=== PATIENT | female | born 1980 | race African-American/Black ===

== ENCOUNTER 2016-05-17 18:23 | Emergency (ER) | payer OTHER ==
--- NOTE | 2016-05-17 18:47 | ED ---
Extremity Problem HPI - General Chief complaint: Extremity Problem,Nontraumatic Stated complaint: Knee pain Time Seen by Provider: 05/17/16 18:35 Source: patient, RN notes reviewed Mode of arrival: wheelchair Limitations: physical limitation - History of Present Illness Initial comments: 35-year-old female presented to the ER complaining of severe right knee pain. 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 She states that 2 weeks ago on a Wednesday after work she was cleaning her fourth and noticed that it didn't feel like her knee popped back in. She states that she has just been working for the discomfort however today it has become unbearable. She states that she cannot sleep. She also states that it is difficult to there weight on the right leg. She states the only time that it is comfortable as while standing with all of her weight on her left leg. She says she does have radiation of pain up her thigh as well. And that the main area of pain is on the medial aspect of her knee. Eyes any prior trauma or injury. She also denies any surgical intervention to this knee in the past. She took 2 200 mg ibuprofen which has given her little relief. She also states that a coworker gave her Vicodin however this did not help with pain and only made her feel high. She states that she does not want any pain medication at this time if it does not can help with the pain and make her feel that way. - Related Data Home Medications Medication Instructions Recorded Confirmed Aspirin 81 mg PO DAILY 03/27/15 01/10/16 Metoprolol Tartrate [Lopressor] 25 mg PO BID 03/27/15 01/10/16 Amoxicillin 500 mg PO Q12H 01/10/16 01/10/16 Ibuprofen [Motrin] 800 mg PO Q8H PRN 01/10/16 01/10/16 amLODIPine [Norvasc] 5 mg PO DAILY 01/10/16 01/10/16 Allergies Allergy/AdvReac Type Severity Reaction Status Date / Time No Known Allergies Allergy Verified 05/17/16 18:26 Review of Systems ROS Statement: Those systems with pertinent positive or pertinent negative responses have been documented in the HPI. ROS Other: All systems not noted in ROS Statement are negative. Past Medical History Past Medical History: Atrial Fibrillation, No Reported History Additional Past Medical History / Comment(s): intestinal infection History of Any Multi-Drug Resistant Organisms: None Reported Past Surgical History: No Surgical Hx Reported Additional Past Surgical History / Comment(s): finger surgery Past Anesthesia/Blood Transfusion Reactions: No Reported Reaction Past Psychological History: No Psychological Hx Reported Additional Psychological History / Comment(s): Pt resides with her boyfriend and 12 yr od marivel. Smoking Status: Current every day smoker Past Alcohol Use History: None Reported Additional Past Alcohol Use History / Comment(s): Pt states she started smoking at the age of 16 yrs and a pack will last her a day and a half. Past Drug Use History: None Reported Additional Drug Use History / Comment(s): Pt states she smokes 3 joints a day. - Past Family History Father Family Medical History: CVA/TIA, Renal Disease Additional Family Medical History / Comment(s): Father had kidney failure. He of a CVA at the age of 52 yrs. Mother Family Medical History: Hypertension General Exam Limitations: physical limitation General appearance: alert, in distress (Patient tearful during interview and in pain.) Head exam: Present: atraumatic, normocephalic Eye exam: Present: normal appearance, PERRL, EOMI Pupils: Present: normal accommodation Respiratory exam: Present: normal lung sounds bilaterally Cardiovascular Exam: Present: regular rate, normal rhythm Extremities exam: Present: joint swelling (Right knee), other (Right lower extremity: Limited exam due to severe pain. Patient is able to flex and extend her knee however flexion causes more discomfort. Patient unable to tolerate any palpation. On visual inspection there are no lacerations or abrasions. No diffuse ecchymosis present. Mild edema noted compared to the left. Negative calf tenderness, edema. Left lower extremity within normal limits.) Neurological exam: Present: alert, oriented X3 Psychiatric exam: Present: agitated (Patient did not want any palpation and was unable to tolerate any exam), anxious (Tearful during entire interview) Course Vital Signs 05/17/16 18:24 Temperature 98.0 F Pulse Rate 95 Respiratory 20 Rate Blood Pressure 128/88 O2 Sat by Pulse 100 Oximetry Medical Decision Making - Medical Decision Making 31-year-old female presented to the ER with what she describes as severe right knee pain. On exam it does appear that there is some superior edema compared with the left. Patient was unable to tolerate physical exam. An x-ray was ordered to evaluate the joint. X-ray was reviewed with attending physician and there does not appear to be any dislocation, fracture, effusion. Patella also does appear to be in alignment. Discussed results with the patient who is extremely tearful with the results. We'll recommend Toro wrap for immobilization and compression, ice on and off, elevation, rest as much as possible. We'll give her a work note keep her off work for the next 3 days so that she can follow-up with orthopedics for possible further evaluation imaging. For the patient to have pain medication however she stated that all this did was make her feel high and not help with the pain. We'll recommend Motrin 802-3 times daily to help with inflammation and pain. Also offered the patient crutches but she does have some at home at this time. She is able to ambulate and walk. All questions were answered and patient was agreeable with treatment plan. - Radiology Data Radiology results: report reviewed (No evidence of fracture, dislocation, effusion.), image reviewed (No evidence of fracture, dislocation, effusion. Patella appear to be on track.) Disposition Clinical Impression: Knee pain, right Disposition: HOME SELF-CARE Condition: Stable Instructions: Knee Pain (ED) Additional Instructions: o follow-up with orthopedics this week for further evaluation and possible further imaging. To return to the ER with worsening symptoms or concerns. Referrals: Aba Akhtar MD [Primary Care Provider] - 1-2 days Darren Quiroga MD [STAFF PHYSICIAN] - 1-2 days Time of Disposition: 20:12
--- NOTE | 2016-05-17 19:35 | XR ---
EXAMINATION TYPE: XR knee complete RT DATE OF EXAM: 05/17/2016 7:15 PM COMPARISON: NONE HISTORY: Pain TECHNIQUE: 3 views right knee FINDINGS: Joint spaces are preserved. No joint effusion is evident. No acute fractures or dislocation s are evident. IMPRESSION: 1. Normal three-view right knee
[2016-05-17] MEDS ORDERED: IBUPROFEN 600 MG STARTER PACK 4 TAB BTL PO STA (19:55)
[2016-05-17 20:13] VITALS: BP 118/80; PULSE 93; RESP 16; TEMP 98
== END 2016-05-17 20:12 | disposition home or self-care (01) ==
LOC: EC 18:23
DX: M25.561 Pain in right knee (principal); I48.91 Unspecified atrial fibrillation; F17.200 Nicotine dependence, unspecified, uncomplicated; Z79.82 Long term (current) use of aspirin; Z79.899 Other long term (current) drug therapy
CPT/HCPCS: 99283

== ENCOUNTER 2017-02-25 01:12 | Emergency (ER) | payer BC, OTHER ==
[2017-02-25 01:20] VITALS: TEMP 97.5
[2017-02-25] MEDS ORDERED: ONDANSETRON 4 MG/2 ML VIAL IVP STA (01:31)
[2017-02-25] MEDS ORDERED: SODIUM CHLORIDE 0.9% 1,000 ML IV STA (01:31)
--- NOTE | 2017-02-25 01:56 | ED ---
General Adult HPI - General Chief complaint: Nausea/Vomiting/Diarrhea Stated complaint: vomiting & diarrhea Time Seen by Provider: 02/25/17 01:23 Source: patient, RN notes reviewed Mode of arrival: ambulatory Limitations: no limitations - History of Present Illness Initial comments: This a 36-year-old female presents emergency Department with multiple complaints. Patient states the last 2-3 days she has not felt well. Patient states started with some cold like symptoms, right ear pain and sore throat congestion. She states last 2 nights that she's gone to work she has been on different job and states that she's been vomiting. Patient states that she was sent home today secondary to episodes. She also had some loose stools. Patient states she just doesn't feel like her normal self states she just feels rundown, tired. Patient does take metoprolol for A. fib denies chest pain, palpitations shortness breath time. Patient denies any chance of . Denies any dysuria or hematuria. - Related Data Home Medications Medication Instructions Recorded Confirmed Aspirin 81 mg PO DAILY 03/27/15 02/25/17 Metoprolol Tartrate [Lopressor] 25 mg PO BID 03/27/15 02/25/17 Ibuprofen [Motrin] 800 mg PO Q8H PRN 01/10/16 02/25/17 amLODIPine [Norvasc] 5 mg PO DAILY 01/10/16 02/25/17 Previous Rx's Medication Instructions Recorded Ondansetron Odt [Zofran Odt] 4 mg PO Q8HR PRN #10 tab 02/25/17 Allergies Allergy/AdvReac Type Severity Reaction Status Date / Time No Known Allergies Allergy Verified 02/25/17 01:20 Review of Systems ROS Statement: Those systems with pertinent positive or pertinent negative responses have been documented in the HPI. ROS Other: All systems not noted in ROS Statement are negative. Past Medical History Past Medical History: Atrial Fibrillation, No Reported History Additional Past Medical History / Comment(s): intestinal infection History of Any Multi-Drug Resistant Organisms: None Reported Past Surgical History: No Surgical Hx Reported Additional Past Surgical History / Comment(s): finger surgery Past Anesthesia/Blood Transfusion Reactions: No Reported Reaction Past Psychological History: No Psychological Hx Reported Smoking Status: Current every day smoker Past Alcohol Use History: Daily, Occasional Past Drug Use History: None Reported - Past Family History Father Family Medical History: CVA/TIA, Renal Disease Additional Family Medical History / Comment(s): Father had kidney failure. He of a CVA at the age of 52 yrs. Mother Family Medical History: Hypertension General Exam Limitations: no limitations General appearance: alert, in no apparent distress Head exam: Present: atraumatic, normocephalic, normal inspection Eye exam: Present: normal appearance, PERRL, EOMI. Absent: scleral icterus, conjunctival injection, periorbital swelling ENT exam: Present: normal exam, normal oropharynx, mucous membranes moist, TM's normal bilaterally, normal external ear exam Neck exam: Present: normal inspection, full ROM. Absent: tenderness, meningismus, lymphadenopathy Respiratory exam: Present: normal lung sounds bilaterally. Absent: respiratory distress, wheezes, rales, rhonchi, stridor Cardiovascular Exam: Present: regular rate, normal rhythm, normal heart sounds. Absent: systolic murmur, diastolic murmur, rubs, gallop, clicks GI/Abdominal exam: Present: soft, normal bowel sounds. Absent: distended, tenderness, guarding, rebound, rigid Back exam: Absent: CVA tenderness (R), CVA tenderness (L) Skin exam: Present: warm, dry, intact, normal color. Absent: rash Course Vital Signs 02/25/17 01:16 Temperature 97.5 F L Pulse Rate 98 Respiratory 20 Rate Blood Pressure 130/79 O2 Sat by Pulse 100 Oximetry Medical Decision Making - Medical Decision Making 36-year-old female presents emergency from for URI symptoms, nausea vomiting. Patient has a viral upper respiratory infection influenza is negative. Patient does have mild pancreatitis related to her alcohol intake. Patient is advised to discontinue alcohol intake we discharged with antiemetics and advised follow- up with her PCP. - Lab Data Result diagrams: 02/25/17 02:30 02/25/17 02:30 Lab Results 02/25/17 02/25/17 02/25/17 Range/Units 02:30 02:30 02:30 WBC 7.4 (3.8-10.6) k/uL RBC 4.35 (3.80-5.40) m/uL Hgb 13.8 (11.4-16.0) gm/dL Hct 42.8 (34.0-46.0) % MCV 98.4 (80.0-100.0) fL MCH 31.8 (25.0-35.0) pg MCHC 32.3 (31.0-37.0) g/dL RDW 12.9 (11.5-15.5) % Plt Count 229 (150-450) k/uL Neutrophils % 72 % Lymphocytes % 22 % Monocytes % 2 % Eosinophils % 2 % Basophils % 0 % Neutrophils # 5.3 (1.3-7.7) k/uL Lymphocytes # 1.7 (1.0-4.8) k/uL Monocytes # 0.2 (0-1.0) k/uL Eosinophils # 0.2 (0-0.7) k/uL Basophils # 0.0 (0-0.2) k/uL Sodium 144 (137-145) mmol/L Potassium 4.3 (3.5-5.1) mmol/L Chloride 105 (98-107) mmol/L Carbon Dioxide 29 (22-30) mmol/L Anion Gap 10 mmol/L BUN 6 L (7-17) mg/dL Creatinine 0.80 (0.52-1.04) mg/dL Est GFR (MDRD) Af Amer >60 (>60 ml/min/1.73 sqM) Est GFR (MDRD) Non-Af >60 (>60 ml/min/1.73 sqM) Glucose 75 (74-99) mg/dL Calcium 10.1 (8.4-10.2) mg/dL Total Bilirubin 0.5 (0.2-1.3) mg/dL AST 23 (14-36) U/L ALT 29 (9-52) U/L Alkaline Phosphatase 69 (38-126) U/L Total Protein 7.4 (6.3-8.2) g/dL Albumin 4.7 (3.5-5.0) g/dL Amylase 134 H (30-110) U/L Lipase 436 H (23-300) U/L Urine Color Urine Appearance (Clear) Urine pH (5.0-8.0) Ur Specific [place] (1.001-1.035) Urine Protein (Negative) Urine Glucose (UA) (Negative) Urine Ketones (Negative) Urine Blood (Negative) Urine Nitrite (Negative) Urine Bilirubin (Negative) Urine Urobilinogen (<2.0) mg/dL Ur Leukocyte Esterase (Negative) Urine HCG, Qual Not Detected (Not Detectd) Influenza Type A RNA (Not Detectd) Influenza Type B (PCR) (Not Detectd) 02/25/17 02/25/17 Range/Units 02:30 02:30 WBC (3.8-10.6) k/uL RBC (3.80-5.40) m/uL Hgb (11.4-16.0) gm/dL Hct (34.0-46.0) % MCV (80.0-100.0) fL MCH (25.0-35.0) pg MCHC (31.0-37.0) g/dL RDW (11.5-15.5) % Plt Count (150-450) k/uL Neutrophils % % Lymphocytes % % Monocytes % % Eosinophils % % Basophils % % Neutrophils # (1.3-7.7) k/uL Lymphocytes # (1.0-4.8) k/uL Monocytes # (0-1.0) k/uL Eosinophils # (0-0.7) k/uL Basophils # (0-0.2) k/uL Sodium (137-145) mmol/L Potassium (3.5-5.1) mmol/L Chloride (98-107) mmol/L Carbon Dioxide (22-30) mmol/L Anion Gap mmol/L BUN (7-17) mg/dL Creatinine (0.52-1.04) mg/dL Est GFR (MDRD) Af Amer (>60 ml/min/1.73 sqM) Est GFR (MDRD) Non-Af (>60 ml/min/1.73 sqM) Glucose (74-99) mg/dL Calcium (8.4-10.2) mg/dL Total Bilirubin (0.2-1.3) mg/dL AST (14-36) U/L ALT (9-52) U/L Alkaline Phosphatase (38-126) U/L Total Protein (6.3-8.2) g/dL Albumin (3.5-5.0) g/dL Amylase (30-110) U/L Lipase (23-300) U/L Urine Color Light Yellow Urine Appearance Clear (Clear) Urine pH 8.0 (5.0-8.0) Ur Specific [place] 1.007 (1.001-1.035) Urine Protein Negative (Negative) Urine Glucose (UA) Negative (Negative) Urine Ketones Negative (Negative) Urine Blood Negative (Negative) Urine Nitrite Negative (Negative) Urine Bilirubin Negative (Negative) Urine Urobilinogen <2.0 (<2.0) mg/dL Ur Leukocyte Esterase Negative (Negative) Urine HCG, Qual (Not Detectd) Influenza Type A RNA Not Detected (Not Detectd) Influenza Type B (PCR) Not Detected (Not Detectd) Disposition Clinical Impression: URI (upper respiratory infection), Pancreatitis Disposition: HOME SELF-CARE Condition: Stable Instructions: Pancreatitis (ED) Additional Instructions: Please return to the Emergency Department if symptoms worsen or any other concerns. Prescriptions: Ondansetron Odt [Zofran Odt] 4 mg PO Q8HR PRN #10 tab PRN Reason: Nausea Referrals: Aba Akhtar MD [Primary Care Provider] - 1-2 days Time of Disposition: 03:06
[2017-02-25 02:42] LABS: Appearance,Urine Clear (Clear); Basophils % (A) 0 %; Bilirubin,Urine Negative (Negative); Blood,Urine Negative (Negative); Color,Urine Light Yellow; Eosinophils # (A) 0.2 k/uL (0-0.7); Eosinophils % (A) 2 %; Glucose,Urine (UA) Negative (Negative); HCT 42.8 % (34.0-46.0); HGB 13.8 gm/dL (11.4-16.0); Ketones,Urine Negative (Negative); Leukocyte Esterase,Urine Negative (Negative); Lymphocytes # (A) 1.7 k/uL (1.0-4.8); Lymphocytes % (A) 22 %; MCH 31.8 pg (25.0-35.0); MCHC 32.3 g/dL (31.0-37.0); MCV 98.4 fL (80.0-100.0); Mean Platelet Volume 7.9; Monocytes # (A) 0.2 k/uL (0-1.0); Monocytes % (A) 2 %; Neutrophils # (A) 5.3 k/uL (1.3-7.7); Neutrophils % (A) 72 %; Nitrite,Urine Negative (Negative); Platelet Count 229 k/uL (150-450); Protein,Urine Negative (Negative); RBC 4.35 m/uL (3.80-5.40); RDW 12.9 % (11.5-15.5); Specific Gravity,Urine 1.007 (1.001-1.035); Urobilinogen,Urine <2.0 mg/dL (<2.0); WBC 7.4 k/uL (3.8-10.6)
[2017-02-25 02:51] LABS: Albumin 4.7 g/dL (3.5-5.0); Amylase 134 U/L (30-110); Anion Gap 10 mmol/L; Calcium 10.1 mg/dL (8.4-10.2); Carbon Dioxide 29 mmol/L (22-30); Chloride 105 mmol/L (98-107); Glucose 75 mg/dL (74-99); Lipase 436 U/L (23-300); Sodium 144 mmol/L (137-145); Total Bilirubin 0.5 mg/dL (0.2-1.3); Total Protein 7.4 g/dL (6.3-8.2)
[2017-02-25 02:53] LABS: Blood Urea Nitrogen 6 mg/dL (7-17); Potassium 4.3 mmol/L (3.5-5.1)
[2017-02-25 02:54] LABS: ALT 29 U/L (9-52); AST 23 U/L (14-36); Alkaline Phosphatase 69 U/L (38-126)
[2017-02-25 03:36] VITALS: BP 141/88; PULSE 89; RESP 18
== END 2017-02-25 03:41 | disposition home or self-care (01) ==
LOC: EC 01:12
DX: K85.90 Acute pancreatitis without necrosis or infection, unspecified (principal); J06.9 Acute upper respiratory infection, unspecified; H92.01 Otalgia, right ear; I48.91 Unspecified atrial fibrillation; F17.200 Nicotine dependence, unspecified, uncomplicated; Z79.82 Long term (current) use of aspirin; Z79.899 Other long term (current) drug therapy
CPT/HCPCS: 36415; 80053; 82150; 83690; 85025; 81003; 81025; 87502; 99284; 96374; 96361; J2405

== ENCOUNTER 2017-03-03 21:29 | Emergency (ER) | payer BC, OTHER ==
--- NOTE | 2017-03-03 22:59 | XR ---
EXAM: XR Left Foot Complete, 3 or More Views CLINICAL HISTORY: Pain TECHNIQUE: Frontal, lateral and oblique views of the left foot. COMPARISON: No relevant prior studies available. FINDINGS: Bones/joints: No acute fracture or traumatic malalignment. Soft tissues: Unremarkable. No radiopaque foreign body. IMPRESSION: No acute findings.
--- NOTE | 2017-03-03 23:29 | XR ---
EXAM: XR Left Ribs and AP Chest, 3 or More Views CLINICAL HISTORY: Reason: Pain TECHNIQUE: Frontal and oblique views of the left ribs and frontal view of the chest. COMPARISON: No relevant prior studies available. FINDINGS: Lungs: Unremarkable. No consolidation. Pleural space: Unremarkable. No pneumothorax. Heart: Unremarkable. No cardiomegaly. Mediastinum: Unremarkable. Bones/joints: Unremarkable. No acute fracture. IMPRESSION: Normal left rib x-rays.
[2017-03-03] MEDS ORDERED: ACET/COD 300 MG/30 MG STARTER PACK 6 TAB BTL PO STA (23:50)
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
[2017-03-04 01:24] VITALS: BP 131/79; PULSE 74; RESP 18; TEMP 97.5
== END 2017-03-04 01:24 | disposition home or self-care (01) ==
LOC: EC 21:29
DX: R07.81 Pleurodynia (principal); M79.672 Pain in left foot; H92.01 Otalgia, right ear; I48.91 Unspecified atrial fibrillation; F17.200 Nicotine dependence, unspecified, uncomplicated; Z79.899 Other long term (current) drug therapy; Y04.0XXA Assault by unarmed brawl or fight, initial encounter; Y92.009 Unspecified place in unspecified non-institutional (private) residence as the place of occurrence of the external cause
CPT/HCPCS: 99284

== ENCOUNTER 2017-08-08 16:21 | Emergency (ER) | payer BC, OTHER ==
[2017-08-08 16:29] VITALS: BP 128/81; PULSE 91; RESP 18; TEMP 98.8
--- NOTE | 2017-08-08 16:42 | ED ---
ENT HPI - General Chief complaint: Dental/Oral Stated complaint: Dental Pain Time Seen by Provider: 08/08/17 16:29 Source: patient, RN notes reviewed Mode of arrival: ambulatory Limitations: no limitations - History of Present Illness Initial comments: This is a 36-year-old female who presents to the emergency department with chief complaint of dental pain. Patient states that she has been experiencing left upper dental pain for the past 4 months. She states that the pain has increased over the past 3 weeks. She denies any drainage. Denies fevers or chills. States she does have a follow-up appointment scheduled with her dentist in 2 weeks. Denies any radiation to the neck or jaw. Denies chest pain or shortness of breath, abdominal pain, nausea or vomiting. Patient states that she is concerned for infection and would like antibiotics. Denies any drug ALLERGIES. - Related Data Home Medications Medication Instructions Recorded Confirmed Metoprolol Tartrate [Lopressor] 25 mg PO BID 03/27/15 03/03/17 Previous Rx's Medication Instructions Recorded Acetaminophen-Codeine 300-30mg 1 tab PO Q6H PRN #20 tablet 03/04/17 [Tylenol #3] Ciprofloxacin Ophth Soln [Cipro 1 drops LEFT EAR BID #1 bottle 03/04/17 Ophth Soln] Naproxen 500 mg PO BID #20 tablet 03/04/17 Ibuprofen 600 mg PO Q6HR #30 tablet 08/08/17 Penicillin V Potassium [Pen Vee K] 500 mg PO QID 10 Days tab 08/08/17 Allergies Allergy/AdvReac Type Severity Reaction Status Date / Time No Known Allergies Allergy Verified 08/08/17 16:30 Review of Systems ROS Statement: Those systems with pertinent positive or pertinent negative responses have been documented in the HPI. ROS Other: All systems not noted in ROS Statement are negative. Past Medical History Past Medical History: Atrial Fibrillation Additional Past Medical History / Comment(s): intestinal infection History of Any Multi-Drug Resistant Organisms: None Reported Past Surgical History: Orthopedic Surgery Additional Past Surgical History / Comment(s): finger surgery, knee sx Past Anesthesia/Blood Transfusion Reactions: No Reported Reaction Past Psychological History: No Psychological Hx Reported Smoking Status: Current every day smoker Past Alcohol Use History: Occasional Past Drug Use History: Marijuana - Past Family History Father Family Medical History: CVA/TIA, Renal Disease Additional Family Medical History / Comment(s): Father had kidney failure. He of a CVA at the age of 52 yrs. Mother Family Medical History: Hypertension General Exam - General Exam Comments Initial Comments: General: Awake and alert, well-developed; in no apparent distress. HEENT: Head atraumatic, normocephalic. Pupils are equal, round and reactive to light. Extraocular movements intact. Oropharynx moist without erythema or exudate. Dental cavity of tooth #12. There is mild tenderness on palpation of the gumline surrounding the tooth. No masses or areas of fluctuance noted. No drainage. No facial swelling. Neck: Supple. Normal ROM. Cardiovascular: Regular rate and rhythm. No murmurs, rubs or gallops. Chest symmetrical. Respiratory: Lungs clear to auscultation bilaterally. No wheezes, rales or rhonchi. Normal respiratory effort with no use of accessory muscles. Musculoskeletal: Normal ROM, no tenderness bilateral upper and lower extremities. Ambulating normally. Skin: [place], warm and dry without rashes or lesions. Neurological: Alert and oriented x3. CN II-XII grossly intact. Speech is fluent and answers are appropriate. No focal neuro deficits. Psychiatric: Normal mood and affect. No overt signs of depression or anxiety noted. Limitations: no limitations Course Vital Signs 08/08/17 16:27 Temperature 98.8 F Pulse Rate 91 Respiratory 18 Rate Blood Pressure 128/81 O2 Sat by Pulse 98 Oximetry Medical Decision Making - Medical Decision Making This is a 36-year-old female who presents to the emergency department with chief complaint of dental pain for the past 4 months. Reports an increase in pain over the past 3 weeks. Tooth #12 does appear to have a cavity. No abscess is noted. Patient's vital signs are stable and she is in no acute distress. She will be discharged home with a prescription for penicillin VK as well as ibuprofen. Recommended following up with her dentist as scheduled. Patient is in agreement with plan and voices understanding. All questions answered. Disposition Clinical Impression: Dental caries Disposition: HOME SELF-CARE Condition: Good Instructions: Dental Caries (ED) Additional Instructions: Please take medications as prescribed. Please follow up with your dentist as scheduled. Please follow up with primary care provider within 1-2 days. Return to emergency department if symptoms should worsen or any concerns arise. Prescriptions: Ibuprofen 600 mg PO Q6HR #30 tablet Penicillin V Potassium [Pen Vee K] 500 mg PO QID 10 Days tab Is patient prescribed a controlled substance at d/c from ED?: No Referrals: Aba Akhtar MD [Primary Care Provider] - 1-2 days Time of Disposition: 16:40
== END 2017-08-08 17:02 | disposition home or self-care (01) ==
LOC: EC 16:21
DX: K02.9 Dental caries, unspecified (principal); F17.200 Nicotine dependence, unspecified, uncomplicated; Z79.899 Other long term (current) drug therapy
CPT/HCPCS: 99282

== ENCOUNTER 2017-09-13 11:29 | Emergency (ER) | payer BC ==
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
[2017-09-13 14:44] VITALS: BP 155/103; PULSE 77; RESP 18; TEMP 98.4
== END 2017-09-13 14:42 | disposition home or self-care (01) ==
LOC: EC 11:29
DX: M54.2 Cervicalgia (principal); R09.89 Other specified symptoms and signs involving the circulatory and respiratory systems; F17.200 Nicotine dependence, unspecified, uncomplicated
CPT/HCPCS: 99283

== ENCOUNTER 2017-09-14 07:22 | Emergency (ER) | payer BC ==
[2017-09-14] MEDS ORDERED: PROPARACAINE 0.5% OPHTH DROPS 15 ML BTL BOTH EYES STA (08:05)
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
[2017-09-14] MEDS ORDERED: ERYTHROMYCIN 5 MG/GM OPHTH OINT 3.5 GM TUBE RIGHT EYE STA (08:33)
[2017-09-14 09:01] VITALS: BP 118/72; PULSE 84; RESP 20; TEMP 97.2
== END 2017-09-14 09:03 | disposition home or self-care (01) ==
LOC: EC 07:22
DX: S05.01XA Injury of conjunctiva and corneal abrasion without foreign body, right eye, initial encounter (principal); H11.31 Conjunctival hemorrhage, right eye; R07.0 Pain in throat; I48.91 Unspecified atrial fibrillation; F17.200 Nicotine dependence, unspecified, uncomplicated; Z79.899 Other long term (current) drug therapy; Y04.8XXA Assault by other bodily force, initial encounter
CPT/HCPCS: 99283

== ENCOUNTER 2017-09-16 10:15 | Emergency (ER) | payer BC ==
[2017-09-16 10:26] VITALS: RESP 18; TEMP 97.8
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
[2017-09-16 13:06] VITALS: BP 141/96; PULSE 82
== END 2017-09-16 13:09 | disposition home or self-care (01) ==
LOC: EC 10:15
DX: S05.01XD Injury of conjunctiva and corneal abrasion without foreign body, right eye, subsequent encounter (principal); H11.31 Conjunctival hemorrhage, right eye; H53.8 Other visual disturbances; I48.91 Unspecified atrial fibrillation; F17.200 Nicotine dependence, unspecified, uncomplicated; Z79.82 Long term (current) use of aspirin; Z91.013 Allergy to seafood; Y09 Assault by unspecified means
CPT/HCPCS: 99283

== ENCOUNTER → 2022-10-27 | Outpatient (CLI) | payer BC ==
--- NOTE | 2022-10-28 23:16 | MR ---
EXAMINATION TYPE: MR knee LT wo con DATE OF EXAM: 10/27/2022 COMPARISON: NONE HISTORY: Left knee pain , locking, and swelling for 2 months. History of prior surgery after MCL tear TECHNIQUE: Multiplanar, multisequence images of the knee is performed without IV contrast. FINDINGS: MEDIAL MENISCUS: Similar subtle signal posterior horn medial meniscus appears to extend to the inferi or articular surface sagittal image 26. LATERAL MENISCUS: Subtle oblique signal posterior horn appears to extend to inferior articular surfac e sagittal image 10. CRUCIATE LIGAMENTS: The anterior and posterior cruciate ligaments are intact and unremarkable. COLLATERAL LIGAMENTS: The medial collateral ligament and lateral collateral ligament complex are inta ct. Fluid surrounds the medial collateral ligament. EXTENSOR MECHANISM: Visualized quadriceps and patellar tendons are intact. EFFUSION: Large size suprapatellar joint effusion. POPLITEAL CYST: Small amount of ill-defined fluid in the popliteal fossa. TRICOMPARTMENT SPACES: Mild tricompartment joint space loss. No significant spurring. CARTILAGE: Tricompartmental articular cartilage is preserved. BONE MARROW SIGNAL: No focal abnormal marrow signal is appreciated. OTHER: No additional significant abnormality is appreciated. IMPRESSION: 1. Large-sized suprapatellar joint effusion. 2. Small to tiny leaking popliteal cyst. 3. Subtle full-thickness tear posterior horn of medial meniscus and lateral meniscus is felt present. 4. Mild tricompartment degenerative changes.
== END | disposition home or self-care (01) ==
LOC: RADMRIMAIN 15:45
PROVIDERS: ATTEND Orthopaedic Surgery
DX: M17.12 Unilateral primary osteoarthritis, left knee (principal); M23.8X2 Other internal derangements of left knee; I10 Essential (primary) hypertension; M25.462 Effusion, left knee; M66.0 Rupture of popliteal cyst